=== PATIENT | female | born 2000 | race Caucasian/White ===

== ENCOUNTER 2024-11-27 15:37 | Inpatient (IN) | payer MEDICAID ==
[~2024-11-27] VITALS: Ht 149.9 cm; Wt 120.0 kg
[2024-11-27 16:53] LABS: HEMOGLOBIN 14.8 g/dl (12.0-15.5); MEAN CORPUSCULAR HEMOGLOBIN 29.8 pg (27.0-33.0); MEAN CORPUSCULAR HGB CONC 34.4 g/dl (32.0-36.5); MEAN CORPUSCULAR VOLUME 86.7 fl (80.0-96.0); PLATELET COUNT, AUTOMATED 328 10^3/uL (150-450); RED BLOOD COUNT 4.96 10^6/uL (4.00-5.40); WHITE BLOOD COUNT 7.8 10^3/uL (4.0-10.0)
[2024-11-27 16:59] LABS: AMPHETAMINES LEVEL URINE NEGATIVE (NEGATIVE); BENZODIAZEPINES URINE NEGATIVE (NEGATIVE); CANNABINOIDS URINE NEGATIVE (NEGATIVE); COCAINE METABOLITE URINE NEGATIVE (NEGATIVE); METHADONE URINE NEGATIVE (NEGATIVE); OPIATES URINE NEGATIVE (NEGATIVE); PHENCYCLIDINE URINE NEGATIVE (NEGATIVE)
[2024-11-27 17:01] LABS: ETHYL ALCOHOL (ETHANOL) 0.005 % (0.000-0.010)
[2024-11-27 17:02] LABS: HCG, SERUM QUALITATIVE NEGATIVE (NEGATIVE)
[2024-11-27 17:03] LABS: ALBUMIN 3.7 G/DL (3.2-5.2); ALKALINE PHOSPHATASE 71 U/L (35-104); ALT/SGPT 19 U/L (7.0-40); AST/SGOT 13 U/L (<34); BARBITURATES URINE POSITIVE (NEGATIVE); BILIRUBIN,DIRECT 0.1 MG/DL (<0.4); BILIRUBIN,TOTAL 0.4 MG/DL (0.3-1.2); BLOOD UREA NITROGEN 11 MG/DL (9-23); CALCIUM LEVEL 8.8 MG/DL (8.5-10.1); CARBON DIOXIDE LEVEL 24 MMOL/L (20-31); CHLORIDE LEVEL 106 MMOL/L (98-107); CREATININE FOR GFR 0.57 MG/DL (0.55-1.30); GLOMERULAR FILTRATION RATE > 60.0 (>60); GLUCOSE, FASTING 86 MG/DL (60-100); SALICYLATE LEVEL < 3.0 MG/DL (<30); SODIUM LEVEL 140 MMOL/L (136-145); TOTAL PROTEIN 6.9 G/DL (5.7-8.2)
[2024-11-27] MEDS: ACETAMINOPHEN 325 MG TAB PO ONE (19:13)
[2024-11-27] MEDS ORDERED: MOM 30ML SUSPENSION UDC PO PRN (20:25)
[2024-11-27] MEDS ORDERED: MAALOX 30 ML SUSP *UDC PO PRN (20:25)
[2024-11-27] MEDS ORDERED: TUMS500C PO (21:54)
[2024-11-27] MEDS ORDERED: EQ S0.65 NARES (21:54)
[2024-11-27] MEDS ORDERED: ACET-897 PO (21:54)
[2024-11-27] MEDS ORDERED: HOME MED LIST COMPLETE! XX SCH (22:00)
[2024-11-27 22:50] VITALS: BP 139/87; TEMP 98; O2SAT 100
[2024-11-28 06:47] VITALS: BP 156/79; TEMP 97.6; O2SAT 98
[2024-11-28] MEDS: IBUPROFEN 400MG TAB PO PRN (08:21)
[2024-11-28] MEDS: ESCITALOPRAM OXALATE 10 MG TAB (LEXAPRO) PO SCH (09:32)
[2024-11-28] MEDS: ACETAMINOPHEN 325 MG TAB PO PRN (09:46)
[2024-11-28 15:51] VITALS: BP 125/70; TEMP 97.8; O2SAT 99
[2024-11-28] MEDS: traZODone 50 MG TAB PO PRN (21:44)
[2024-11-29 06:37] VITALS: BP 137/88; TEMP 96.9; O2SAT 99
[2024-11-29 15:50] VITALS: BP 128/81; TEMP 98.1; O2SAT 99
[2024-11-29 17:11] VITALS: BP 135/82; O2SAT 100
[2024-11-29] MEDS: diphenhydrAMINE 25MG CAP PO PRN (17:11)
[2024-11-30 06:25] VITALS: BP 114/61; TEMP 97.8; O2SAT 98
[2024-11-30 16:41] VITALS: BP 112/78; TEMP 97.2; O2SAT 100
[2024-12-01 06:42] VITALS: BP 111/58; TEMP 97.2; O2SAT 99
[2024-12-01 15:39] VITALS: BP 140/77; TEMP 97.7; O2SAT 98
[2024-12-01] MEDS: NICOTINE POLACRILEX 2 MG GUM PO PRN (18:22)
[2024-12-02] MEDS ORDERED: TRAZ-252 PO (01:27)
[2024-12-02] MEDS ORDERED: HYDR-3363 PO (01:27)
[2024-12-02] MEDS ORDERED: LEXA1TAB PO (01:27)
[2024-12-02 06:26] VITALS: BP 147/91; TEMP 97.1; O2SAT 97
== END 2024-12-02 12:04 | disposition home or self-care (01) | DRG 751 ==
LOC: M ED 15:37 → M ED INP 20:22 → M PSY 22:18
PROVIDERS: ADMIT Psychiatry & Neurology Neurology; ATTEND Internal Medicine
DX: F33.1 Major depressive disorder, recurrent, moderate (principal); Z68.43 Body mass index [BMI] 50.0-59.9, adult; R45.851 Suicidal ideations; E66.01 Morbid (severe) obesity due to excess calories; G57.12 Meralgia paresthetica, left lower limb; F41.1 Generalized anxiety disorder; F17.290 Nicotine dependence, other tobacco product, uncomplicated; Z91.52 Personal history of nonsuicidal self-harm; Z56.0 Unemployment, unspecified; Z88.0 Allergy status to penicillin